=== PATIENT | female | born 1940 | race Caucasian/White ===

== ENCOUNTER 2022-11-03 13:18 | Emergency (ER) | payer MEDICARE, SELFPAY ==
[2022-11-03] VITALS (18 sets, daily range): BP systolic 155–186; BP diastolic 63–85; PULSE 42–53; RESP 20; TEMP 35.7; O2SAT 94–98; BMI 28.3
--- NOTE | 2022-11-03 13:57 | CRLHL7_ITS ---
For Patients: As a result of the Century Cures Act, medical imaging exams and procedure reports are released immediately into your electronic medical record. You may view this report before your referring provider. If you have questions, please contact your health care provider. INDICATION: chest pain TECHNIQUE: Chest 2 views. COMPARISON: None. FINDINGS: Cardiovascular and mediastinum: Heart size and vasculature are normal in caliber and appearance. Mediastinum is within normal limits. Lungs and pleural spaces: Lungs are clear. No sign of infiltrate or mass. No sign of pleural effusion. No pneumothorax. Bones and soft tissues: No significant findings. IMPRESSION: Unremarkable chest. Dictated by: Stuart Pennington MD @ 11/03/2022 15:01:51 (Electronically Signed)
--- NOTE | 2022-11-03 14:14 | ED_ITS ---
HPI - Chest Pain General Date Seen: 11/03/22 Chief Complaint: Chest Pain Stated Complaint: Chest tightness/discomfort Time Seen by Provider: 11/03/22 13:19 Source: patient and family Mode of arrival: ambulatory Limitations: no limitations History of Present Illness HPI narrative: Patient is a very nice 81-year-old female who presents here for evaluation of chest pain with her , she has been having this on off for couple weeks, she describes it over the left side of her chest, with little radiation to her left arm, this occurs both with rest and activity, but it is more seemingly randomly. Last for a few seconds and then abates, she is taking aspirin, as in the past her son told her to take aspirin for this and finds 81 mg takes the pain away. She notes no shortness of breath, says she can walk it least 250 ft without getting in fact that does not even really give it at all and is able to exercise and move around normally. Denies any nausea vomiting is sweating associated with this she has no previous history of coronary artery disease, DVTs pulmonary emboli. She does note that she is under increased stress at they just had her grandson for a week, for spring and that was a sort of a stressful occurrence. MD complaint: chest pain Treatment prior to arrival: aspirin Risk Factors Coronary artery disease risk factors: none Thoracic aortic dissection risk factors: none Related Data On Oral Contraceptives: No Previous Rx's Medication Instructions Recorded nitroglycerin 0.4 mg sublingual 0.4 mg sublingual Q5-15M PRN chest 11/03/22 tablet pain #30 tabs Allergies Allergy/AdvReac Type Severity Reaction Status Date / Time No Known Drug Allergies Allergy Verified 11/03/22 13:34 Review of Systems Status of ROS Reports: 10 or more systems reviewed and unremarkable except as noted in History and below PFSH PFS Social History Smoking Status: Never smoker Do you use any of these nicotine containing products: None Second hand tobacco smoke exposure: No How often do you have a drink containing alcohol: never How often do you have six or more drinks on one occasion: Never AUDIT-C Alcohol total score: 0 Non-prescribed substance use: denies use service: No Exam Narrative Exam Narrative: Patient is seen and assessed in room 6 she is in no apparent distress, her pupils equal round reactive to light there is no scleral icterus or redness TMs bilaterally are normal, oropharynx is normal there is no adenopathy anterior posterior chains, JVP is flat, carotid upstrokes are equal bilaterally, chest is good air entry bilaterally with no chest pain with breathing, there is no extra sounds, no crackles no wheezes, no signs of respiratory distress. Heart sounds no clicks murmurs or gallops, no reproducible pain across the chest wall area, her abdomen is soft, there is no guarding, no tenderness to palpation. Skin reveals no petechiae or redness, moves all extremities independently and well. Const Vital Signs, click to edit/add: Vital Signs - 24 hr 11/03/22 13:23 11/03/22 14:26 11/03/22 14:30 Temperature 96.3 F L Pulse Rate 46 L 46 L Pulse Rate [Pulse Oximeter] 52 L Respiratory Rate 20 Blood Pressure Blood Pressure [Left Upper Arm] 186/85 H Pulse Oximetry 96 97 97 Oxygen Delivery Method Room Air 11/03/22 14:32 11/03/22 14:33 11/03/22 14:45 Temperature Pulse Rate 47 L 46 L 42 L Pulse Rate [Pulse Oximeter] Respiratory Rate Blood Pressure 177/77 H Blood Pressure [Left Upper Arm] Pulse Oximetry 96 96 94 Oxygen Delivery Method 11/03/22 15:00 11/03/22 15:01 11/03/22 15:15 Temperature Pulse Rate 45 L 45 L 47 L Pulse Rate [Pulse Oximeter] Respiratory Rate Blood Pressure 155/72 H Blood Pressure [Left Upper Arm] Pulse Oximetry 96 96 95 Oxygen Delivery Method 11/03/22 15:30 11/03/22 15:32 11/03/22 15:33 Temperature Pulse Rate 47 L 47 L 46 L Pulse Rate [Pulse Oximeter] Respiratory Rate Blood Pressure 157/63 H Blood Pressure [Left Upper Arm] Pulse Oximetry 95 97 95 Oxygen Delivery Method 11/03/22 15:45 11/03/22 16:00 11/03/22 16:01 Temperature Pulse Rate 47 L 47 L 46 L Pulse Rate [Pulse Oximeter] Respiratory Rate Blood Pressure 162/73 H Blood Pressure [Left Upper Arm] Pulse Oximetry 96 97 96 Oxygen Delivery Method 11/03/22 16:15 11/03/22 16:30 11/03/22 16:32 Temperature Pulse Rate 47 L 53 L 50 L Pulse Rate [Pulse Oximeter] Respiratory Rate Blood Pressure 170/71 H Blood Pressure [Left Upper Arm] Pulse Oximetry 98 96 95 Oxygen Delivery Method Documenting provider has reviewed patient's vital signs: yes Course Course Hospital Course: Patient remained pain-free, her 1st troponins negative along with 3 kg, I spoke with her primary care physician at the [facility]. She will see her in follow-up next week, I suggest a stress echo, we will put her on daily aspirin 81 mg and have her use nitroglycerin as needed, creasing chest pain shortness of breath she will come back and be seen, Reevaluation(s) Reevaluation #1: 2nd troponin is negative, her EKG shows no acute changes, she is pain-free I think at this point we can discharge her with follow-up, I have talked to her primary care physician, and the patient, will return, if further chest pain or other issues. Time: 16:22 Vital Signs Vital signs: Initial Vital Signs Temperature 96.3 F L 11/03/22 13:23 Temperature Source Temporal Artery Scan 11/03/22 13:23 Pulse Rate 52 L 11/03/22 13:23 Pulse Rhythm Regular 11/03/22 13:23 Respiratory Rate 20 11/03/22 13:23 Blood Pressure 186/85 H 11/03/22 13:23 Blood Pressure Mean 118 11/03/22 13:23 Blood Pressure Position Supine 11/03/22 13:23 Pulse Oximetry 96 11/03/22 13:23 Oxygen Delivery Method Room Air 11/03/22 13:23 Vital Signs Temperature 96.3 F L 11/03/22 13:23 Pulse Rate 52 L 11/03/22 13:23 Respiratory Rate 20 11/03/22 13:23 Blood Pressure 186/85 H 11/03/22 13:23 Pulse Oximetry 96 11/03/22 13:23 Oxygen Delivery Method Room Air 11/03/22 13:23 Temperature 96.3 F L 11/03/22 13:23 Pulse Rate 50 L 11/03/22 16:32 Respiratory Rate 20 11/03/22 13:23 Blood Pressure 170/71 H 11/03/22 16:32 Pulse Oximetry 95 11/03/22 16:32 Oxygen Delivery Method Room Air 11/03/22 13:23 MDM - Chest Pain MDM Narrative Medical decision making narrative: During the evaluation of this patient I considered multiple differential diagnosis is. The life-threatening differential diagnosis include coronary disease/SD, pulmonary embolism, pneumothorax, pneumonia, and aortic dissection. Other differential diagnosis included but were not limited to pericarditis, myocarditis, chest wall pain, GERD, esophageal rupture, rib fracture contusion, pleurisy, as well as other etiologies. Medical Records Data Attestation: I reviewed the patient's medical records. Lab Data Attestation: I reviewed the patient's lab results. Labs: Lab Results 11/03/22 11/03/22 11/03/22 Range/Units 13:57 14:00 14:07 WBC 4.58 (4.50-11.00) K/uL RBC 5.03 (4.00-5.20) m/uL Hgb 15.3 (12.0-16.0) gm/dL Hct 45.5 (33.0-51.0) % MCV 91 (80-100) fL MCH 30 (26-34) pg MCHC 34 (32-36) gm/dL RDW Coeff of Juhi 12.3 (11.5-15.5) % Plt Count 266 (140-440) K/uL Neut % (Auto) 52.7 (42.0-72.0) % Lymph % (Auto) 37.6 (20-44) % [place] % (Auto) 7.6 (0.0-11.0) % Eos % (Auto) 1.7 (0.0-7.0) % Baso % (Auto) 0.4 (0.0-3.0) % Neut # (Auto) 2.41 (1.7-7.0) K/uL Lymph # (Auto) 1.72 (0.90-2.90) K/uL [place] # (Auto) 0.30 (0.00-0.90) K/UL Eos # (Auto) 0.08 (0.00-0.50) K/uL Baso # (Auto) 0.02 (0.00-0.30) K/uL INR 0.92 (0.91-1.10) APTT 29 (23-33) Seconds D-Dimer Quant (PE/DVT) 0.45 (0.00-0.50) ug/ml Sodium 136 (135-149) mmol/L Potassium 3.2 L (3.6-5.1) mmol/L Chloride 102 (96-114) mmol/L Carbon Dioxide 25 (20-32) mmol/L BUN 18 (7-30) mg/dL Creatinine 0.8 (0.5-1.5) mg/dL Estimated Creat Clear 36.08 Estimated GFR 75 ml/min Glucose 96 (60-115) mg/dL Calcium 9.7 (8.4-10.6) mg/dL C-Reactive Protein < 0.5 L (0.5-1.0) mg/dL NT-Pro-B Natriuret Pep 43 pg/mL SARS-CoV-2 (PCR) Negative SARS-CoV-2 (Negative) Influenza Type A (PCR) Negative PCR FLU A (Negative) Influenza Type B (PCR) Negative PCR FLU B (Negative) RSV (PCR) Negative PCR RSV (Negative) POC Troponin I 0.00 L (0.01-0.04) ng/ml 11/03/22 Range/Units 16:00 WBC (4.50-11.00) K/uL RBC (4.00-5.20) m/uL Hgb (12.0-16.0) gm/dL Hct (33.0-51.0) % MCV (80-100) fL MCH (26-34) pg MCHC (32-36) gm/dL RDW Coeff of Juhi (11.5-15.5) % Plt Count (140-440) K/uL Neut % (Auto) (42.0-72.0) % Lymph % (Auto) (20-44) % [place] % (Auto) (0.0-11.0) % Eos % (Auto) (0.0-7.0) % Baso % (Auto) (0.0-3.0) % Neut # (Auto) (1.7-7.0) K/uL Lymph # (Auto) (0.90-2.90) K/uL [place] # (Auto) (0.00-0.90) K/UL Eos # (Auto) (0.00-0.50) K/uL Baso # (Auto) (0.00-0.30) K/uL INR (0.91-1.10) APTT (23-33) Seconds D-Dimer Quant (PE/DVT) (0.00-0.50) ug/ml Sodium (135-149) mmol/L Potassium (3.6-5.1) mmol/L Chloride (96-114) mmol/L Carbon Dioxide (20-32) mmol/L BUN (7-30) mg/dL Creatinine (0.5-1.5) mg/dL Estimated Creat Clear Estimated GFR ml/min Glucose (60-115) mg/dL Calcium (8.4-10.6) mg/dL C-Reactive Protein (0.5-1.0) mg/dL NT-Pro-B Natriuret Pep pg/mL SARS-CoV-2 (PCR) (Negative) Influenza Type A (PCR) (Negative) Influenza Type B (PCR) (Negative) RSV (PCR) (Negative) POC Troponin I 0.00 L (0.01-0.04) ng/ml Imaging Data Chest x-ray: Attestation: I have reviewed the pertinent imaging results. My impression: No acute changes Radiologist's impression: Patient: MIGUEL BENÍTEZ Facility:?[facility] Patient ID:?[id number] Site Patient ID:?[id number]. Site :?[id number] Study:?XRay Chest 2 view-11/03/2022 2:17:21 PM Ordering Physician:?Sanam Adams Final Report: INDICATION: chest pain TECHNIQUE: Chest 2 views. COMPARISON: None. FINDINGS: Cardiovascular and mediastinum: Heart size and vasculature are normal in caliber and appearance. Mediastinum is within normal limits. Lungs and pleural spaces: Lungs are clear. No sign of infiltrate or mass. No sign of pleural effusion. No pneumothorax. Bones and soft tissues: No significant findings. IMPRESSION: Unremarkable chest. Dictated by: Stuart Pennington MD @ 11/03/2022 15:01:51 (Electronic Signature) ECG Data Attestation: I personally reviewed and interpreted this ECG as follows: ECG interpretation date: 11/03/22 Interpretation: EKG shows normal sinus rhythm, sinus bradycardia at 50 beats per minute, borderline first-degree block with a UT interval of [address] wave changes Discharge Plan Discharge Clinical Impression: Chest pain Patient Disposition: Home w/ Parent or Adult Condition: Stable Instructions: Chest Pain (ED) Additional Instructions: Home rest daily aspirin 81 mg, would suggest using nitroglycerin as needed please sit down when you take this medication as it can sometimes drop your blood pressure make you lightheaded, if the nitroglycerin does not take away your pain, after rest for 5 minutes and please take another 1 come to the emergency room. I spoke with her primary care physician, and you should follow- up with her next week as she noted you have an appointment. Will set you up for a stress echo Activity Level: Light activity Prescriptions: New nitroglycerin 0.4 mg tablet, sublingual 0.4 mg sublingual Q5-15M PRN (Reason: chest pain) Qty: 30 1RF Rx Instructions: do not exceed 3 doses per episode Follow Up/Referrals: Sameera Medina PA [Primary Care Provider] - Stand Alone Forms: [employer] Info Instructions
[2022-11-03 14:22] LABS: Basophils Absolute Auto 0.02 K/uL (0.00-0.30); Basophils Percent Auto 0.4 % (0.0-3.0); Eosinophils Absolute Auto 0.08 K/uL (0.00-0.50); Eosinophils Percent Auto 1.7 % (0.0-7.0); Hematocrit 45.5 % (33.0-51.0); Hemoglobin* 15.3 gm/dL (12.0-16.0); Lymphocytes Absolute Auto 1.72 K/uL (0.90-2.90); Lymphocytes Percent Auto 37.6 % (20-44); Mean Corpuscular HGB Conc 34 gm/dL (32-36); Mean Corpuscular Hemoglobin 30 pg (26-34); Mean Corpuscular Volume 91 fL (80-100); Monocytes Percent Auto 7.6 % (0.0-11.0); Neutrophils Absolute Auto 2.41 K/uL (1.7-7.0); Neutrophils Percent Auto 52.7 % (42.0-72.0); Platelet Count* 266 K/uL (140-440); RDW Coefficient of Variation % 12.3 % (11.5-15.5); Red Blood Count 5.03 m/uL (4.00-5.20); White Blood Count* 4.58 K/uL (4.50-11.00)
[2022-11-03 14:29] LABS: Slide Review Reflex No
[2022-11-03 14:35] LABS: Chloride* 102 mmol/L (96-114); Potassium* 3.2 mmol/L (3.6-5.1); Sodium* 136 mmol/L (135-149)
[2022-11-03 14:38] LABS: Creatinine* 0.8 mg/dL (0.5-1.5); Est. Creatinine Clearance* 36.08; Estimated Glomerular Filt Rate 75 ml/min
[2022-11-03 14:39] LABS: Blood Urea Nitrogen* 18 mg/dL (7-30); Calcium* 9.7 mg/dL (8.4-10.6); Carbon Dioxide* 25 mmol/L (20-32); Glucose* 96 mg/dL (60-115)
[2022-11-03 14:43] LABS: D Dimer Quantitative* 0.45 ug/ml (0.00-0.50)
[2022-11-03 14:44] LABS: C Reactive Protein* < 0.5 mg/dL (0.5-1.0)
[2022-11-03 14:49] LABS: PCR FLU A Negative PCR FLU A (Negative); PCR FLU B Negative PCR FLU B (Negative); PCR RSV Negative PCR RSV (Negative)
[2022-11-03 14:50] LABS: SARS PCR* Negative SARS-CoV-2 (Negative)
[2022-11-03 14:57] LABS: NT Pro B Type NatriureticPept* 43 pg/mL
[2022-11-03 15:26] LABS: INR 0.92 (0.91-1.10); Partial Thromboplastin Time* 29 Seconds (23-33); Prothrombin Time 12.9 Seconds
== END 2022-11-03 16:50 | disposition home or self-care (01) ==
PROVIDERS: Emergency Provider Family Medicine; PCP Physician Assistant
DX: R07.9 Chest pain, unspecified (principal)
CPT/HCPCS: 36415; 71046; 80048; 83880; 84484; 85025; 85379; 85610; 85730; 86140; 87631; 93005; 99284